=== PATIENT | female | born 1990 | race Caucasian/White ===

== ENCOUNTER 2018-12-27 00:36 | Emergency (ER) | payer SELFPAY ==
[2018-12-27] MEDS ORDERED: Sodium Chloride 0.9% 2.5 ML Syringe FLUSH PRN (01:03)
[2018-12-27] MEDS ORDERED: Sodium Chloride 0.9% 10 ML Syringe FLUSH PRN (01:03)
[2018-12-27] MEDS ORDERED: Sodium Chloride 0.9% 1,000 ML IV ONE (01:03)
[2018-12-27] MEDS ORDERED: Bacitracin Oint 1 GM U/D Packet TOP ONE (01:04)
[2018-12-27] MEDS ORDERED: Lidocaine 1% with EPINEPHrine 1:100,000 20 ML MDV INJECT ONE (01:04)
--- NOTE | 2018-12-27 01:10 | EDM.PDOC ---
ED HPI GENERAL MEDICAL PROBLEM - General Chief Complaint: Laceration Stated Complaint: CHIN LACERATION Time Seen by Provider: 12/27/18 00:48 - History of Present Illness INITIAL COMMENTS - FREE TEXT/NARRATIVE: HISTORY AND PHYSICAL: History of present illness: The patient is a 28-year-old female who follows with a provider in [place] and has a history of back problems which may have been a disc problem for which she has been treated in the past with physical therapy and chiropractor and never had an MRI and presents to the ED saying that she bent over yesterday and aggravated her back again and has been having pain in her right back radiating to her right hip. This pain is similar to her prior episode and she took an old Flexeril that she had this evening at 8:30 PM to try to help with the pain. She was sleepy after the Flexeril and she got up to go to the bathroom and was sitting on the toilet when she had a sudden spasm in her back on the right side she got short of breath and sweaty and then proceeded to pass out and recalls nothing prior to waking up on the floor other than what has been stated. She said that she was not on the floor for long and she only complains now of pain at her chin where she sustained a laceration. The patient says she has no head neck or back pain and no neurosensory changes or weakness in her legs. She's had no vomiting or nausea for or after this event and no chest pain shortness of breath or palpitations. She says that she still has the pain in her left back which is unchanged and she has no midline back pain and does not believe that she landed on her back and has no discomfort additional to what she had prior to the events. She said she ate normally yesterday has not had any fevers. The patient says she was updated on her tetanus shot just recently by her provider in the clinic and she does not have a local provider although she has relocated here. The patient said she had one beer with dinner but does not feel altered or confused in any way. With her back pain she has not had any bowel or bladder disturbances and she says that when she was on the toilet she was not pushing but that her back spasms which she believes caused this event of passing out to occur Review of systems: As per history of present illness and below otherwise all systems reviewed and negative. Past medical history: As per history of present illness and as reviewed below otherwise noncontributory. Surgical history: As per history of present illness and as reviewed below otherwise noncontributory. Social history: No reported history of drug or alcohol abuse. Family history: As per history of present illness and as reviewed below otherwise noncontributory. Physical exam: General: Well-developed well-nourished overweight female who is nontoxic and moves slowly in the ED due to her back pain on the right. She is speaking clearly and easily and is in no distress. HEENT: Atraumatic scalp without any defects tenderness or deformities, normocephalic, pupils reactive, EOMs are intact, negative for conjunctival pallor or scleral icterus, mucous membranes moist, throat clear, neck supple, nontender, trachea midline. Teeth and bite are normal, all facial bones have been palpated and have no tenderness defects deformities or soft tissue swelling and there is no nasal blood, TMs are normal bilaterally, there are no midline step-offs in his defects of the cervical spine, there is no maxillary tenderness and as I said bite is intact but there is a laceration at the chin measuring 2 cm to the subcutaneous tissue was some gaping and some tenderness in this area. Lungs: Clear to auscultation, breath sounds equal bilaterally, chest nontender. Heart: S1S2, regular, negative for clicks, rubs, or JVD. No overt murmurs are appreciated Abdomen: Soft, nondistended, nontender. Negative for masses or hepatosplenomegaly. Negative for costovertebral tenderness. Pelvis: Stable nontender. Genitourinary: Deferred. Rectal: Deferred. Extremities: Atraumatic, negative for cords or calf pain. Neurovascular unremarkable. Full range of motion without defects or deficits Neuro: Awake, alert, oriented. Cranial nerves II through XII unremarkable. Cerebellum unremarkable. Motor and sensory unremarkable throughout. Exam nonfocal. Back: There are no midline step-offs in his defects of the thoracic or lumbar spine no posterior rib tenderness and no posterior pelvis tenderness. The patient indicates the area of her right SI joint as the site of the pain and when I palpate this area and the musculature I can reproduce the pain. Diagnostics: EKG CBC CMP TSH troponin UA with reflex UCG chest x-ray CT scan of the head orthostatic vitals Therapeutics: IV O2 monitor IV fluids lidocaine with epinephrine for suture repair, bacitracin to the wound, Toradol Procedure note: After the wound was irrigated and cleansed by nursing the procedure was explained to the patient and 1% lidocaine with epinephrine was infused a local fashion. The area was prepped and draped in sterile fashion and the wound was explored and no foreign bodies were appreciated. There was significantly more depth appreciated on this reevaluation and #1 subcutaneous Vicryl suture was placed in simple interrupted fashion of 5-0 Vicryl .The skin edges were reapproximated using a total number of # 7 sutures of 5-0 chromic placed in a simple interrupted fashion. There were no complications and the patient tolerated the procedure well. Bacitracin and a gauze dressing were applied by nursing I discussed with the patient all testing results and tonight the events and have offered her observation admission which she declines. She thinks it's a combination of taking a muscle relaxer which made her drowsy and then having the spasm of pain while on the toilet that caused her to pass out and fall. She is aware of my concerns and accepts them. I will give her some diclofenac for home but she does not want anything else that stronger and will use the Flexeril as she needs. She is aware of reasons to return Impression: Syncopal event, recurrent right back pain with muscle spasm, chin laceration Definitive disposition and diagnosis as appropriate pending reevaluation and review of above. Jaw Pain Score (Numeric/FACES): 7 - Related Data Allergies Allergy/AdvReac Type Severity Reaction Status Date / Time No Known Allergies Allergy Verified 12/27/18 00:54 Home Meds: Home Meds Cholecalciferol (Vitamin D3) [Vitamin D] 1 tab PO DAILY 12/27/18 [History] Cyclobenzaprine [Flexeril] 5 mg PO ASDIRECTED 12/27/18 [History] Multivitamin [Multi-Vitamin Daily] 1 tab PO DAILY 12/27/18 [History] Venlafaxine [Effexor XR] 150 mg PO DAILY 12/27/18 [History] Vitamin B Complex 1 cap PO DAILY 12/27/18 [History] ED ROS GENERAL - Review of Systems Review Of Systems: ROS reveals no pertinent complaints other than HPI. ED EXAM, SKIN/RASH Exam: See Below (See dictation) Course - Vital Signs Last Recorded V/S: Last Vital Signs Temp 35.5 C 12/27/18 00:51 Pulse 89 12/27/18 00:51 Resp BP 138/88 12/27/18 00:51 Pulse Ox 95 12/27/18 00:51 Orthostatic Blood Pressure [ 120/66 Standing] Orthostatic Blood Pressure [ 139/79 Sitting] Orthostatic Blood Pressure [ 125/69 Supine] - Orders/Labs/Meds Orders: Active Orders 24 hr Category Date Time Status Cardiac Monitoring [RC] . DIRECTED Care 12/27/18 01:02 Active Communication Order [RC] STAT Care 12/27/18 01:04 Active EKG Documentation Completion [RC] STAT Care 12/27/18 01:03 Active Orthostatic Vital Signs [RC] ASDIRECTED Care 12/27/18 01:03 Active Oxygen Therapy, ED [RC] ASDIRECTED Care 12/27/18 01:02 Active Pulse Oximetry [RC] ASDIRECTED Care 12/27/18 01:02 Active Sodium Chloride 0.9% [Saline Flush] Med 12/27/18 01:03 Active 10 ml FLUSH ASDIRECTED PRN Sodium Chloride 0.9% [Saline Flush] Med 12/27/18 01:03 Active 2.5 ml FLUSH ASDIRECTED PRN Saline Lock Insert [OM.PC] Stat Oth 12/27/18 01:02 Ordered Medication Orders Sodium Chloride (Saline Flush) 10 ml FLUSH ASDIRECTED PRN PRN Reason: Keep Vein Open Sodium Chloride (Saline Flush) 2.5 ml FLUSH ASDIRECTED PRN PRN Reason: Keep Vein Open Labs: Laboratory Tests 12/27/18 12/27/18 12/27/18 Range/Units 01:15 01:15 01:30 WBC 9.15 (4.0-11.0) K/uL RBC 4.46 (4.30-5.90) M/uL Hgb 14.1 (12.0-16.0) g/dL Hct 40.8 (36.0-46.0) % MCV 91.5 (80.0-98.0) fL MCH 31.6 (27.0-32.0) pg MCHC 34.6 (31.0-37.0) g/dL RDW Std Deviation 39.4 (28.0-62.0) fl RDW Coeff of Melissa 12 (11.0-15.0) % Plt Count 250 (150-400) K/uL MPV 10.30 (7.40-12.00) fL Neut % (Auto) 54.2 (48.0-80.0) % Lymph % (Auto) 36.5 (16.0-40.0) % Garden % (Auto) 7.0 (0.0-15.0) % Eos % (Auto) 1.9 (0.0-7.0) % Baso % (Auto) 0.4 (0.0-1.5) % Neut # (Auto) 5.0 (1.4-5.7) K/uL Lymph # (Auto) 3.3 H (0.6-2.4) K/uL Garden # (Auto) 0.6 (0.0-0.8) K/uL Eos # (Auto) 0.2 (0.0-0.7) K/uL Baso # (Auto) 0.0 (0.0-0.1) K/uL Sodium 139 (136-145) mmol/L Potassium 4.2 (3.5-5.1) mmol/L Chloride 105 (98-107) mmol/L Carbon Dioxide 24.4 (21.0-32.0) mmol/L BUN 12 (7.0-18.0) mg/dL Creatinine 0.7 (0.6-1.0) mg/dL Est Cr Clr Drug Dosing 123.93 mL/min Estimated GFR (MDRD) > 60.0 ml/min Glucose 108 H (74-106) mg/dL Calcium 8.5 (8.5-10.1) mg/dL Total Bilirubin 0.3 (0.2-1.0) mg/dL AST 16 (15-37) IU/L ALT 20 (14-63) IU/L Alkaline Phosphatase 93 (46-116) U/L Troponin I < 0.050 (0.000-0.056) ng/mL Total Protein 6.8 (6.4-8.2) g/dL Albumin 3.6 (3.4-5.0) g/dL Globulin 3.2 (2.6-4.0) g/dL Albumin/Globulin Ratio 1.1 (0.9-1.6) TSH 3rd Generation 5.71 H (0.36-3.74) uIU/mL Urine Color YELLOW Urine Appearance CLEAR Urine pH 6.0 (5.0-8.0) Ur Specific Poston 1.010 (1.001-1.035) Urine Protein NEGATIVE (NEGATIVE) mg/dL Urine Glucose (UA) NEGATIVE (NEGATIVE) mg/dL Urine Ketones NEGATIVE (NEGATIVE) mg/dL Urine Occult Blood NEGATIVE (NEGATIVE) Urine Nitrite NEGATIVE (NEGATIVE) Urine Bilirubin NEGATIVE (NEGATIVE) Urine Urobilinogen 0.2 (<2.0) EU/dL Ur Leukocyte Esterase NEGATIVE (NEGATIVE) Urine HCG, Qual (NEGATIVE) 12/27/18 Range/Units 01:30 WBC (4.0-11.0) K/uL RBC (4.30-5.90) M/uL Hgb (12.0-16.0) g/dL Hct (36.0-46.0) % MCV (80.0-98.0) fL MCH (27.0-32.0) pg MCHC (31.0-37.0) g/dL RDW Std Deviation (28.0-62.0) fl RDW Coeff of Melissa (11.0-15.0) % Plt Count (150-400) K/uL MPV (7.40-12.00) fL Neut % (Auto) (48.0-80.0) % Lymph % (Auto) (16.0-40.0) % Garden % (Auto) (0.0-15.0) % Eos % (Auto) (0.0-7.0) % Baso % (Auto) (0.0-1.5) % Neut # (Auto) (1.4-5.7) K/uL Lymph # (Auto) (0.6-2.4) K/uL Garden # (Auto) (0.0-0.8) K/uL Eos # (Auto) (0.0-0.7) K/uL Baso # (Auto) (0.0-0.1) K/uL Sodium (136-145) mmol/L Potassium (3.5-5.1) mmol/L Chloride (98-107) mmol/L Carbon Dioxide (21.0-32.0) mmol/L BUN (7.0-18.0) mg/dL Creatinine (0.6-1.0) mg/dL Est Cr Clr Drug Dosing mL/min Estimated GFR (MDRD) ml/min Glucose (74-106) mg/dL Calcium (8.5-10.1) mg/dL Total Bilirubin (0.2-1.0) mg/dL AST (15-37) IU/L ALT (14-63) IU/L Alkaline Phosphatase (46-116) U/L Troponin I (0.000-0.056) ng/mL Total Protein (6.4-8.2) g/dL Albumin (3.4-5.0) g/dL Globulin (2.6-4.0) g/dL Albumin/Globulin Ratio (0.9-1.6) TSH 3rd Generation (0.36-3.74) uIU/mL Urine Color Urine Appearance Urine pH (5.0-8.0) Ur Specific Poston (1.001-1.035) Urine Protein (NEGATIVE) mg/dL Urine Glucose (UA) (NEGATIVE) mg/dL Urine Ketones (NEGATIVE) mg/dL Urine Occult Blood (NEGATIVE) Urine Nitrite (NEGATIVE) Urine Bilirubin (NEGATIVE) Urine Urobilinogen (<2.0) EU/dL Ur Leukocyte Esterase (NEGATIVE) Urine HCG, Qual NEGATIVE (NEGATIVE) Meds: Medications Generic Name Dose Route Start Last Admin Trade Name Juliet PRN Reason Stop Dose Admin Sodium Chloride 10 ml 12/27/18 01:03 Saline Flush FLUSH ASDIRECTED PRN Keep Vein Open Sodium Chloride 2.5 ml 12/27/18 01:03 Saline Flush FLUSH ASDIRECTED PRN Keep Vein Open Discontinued Medications Generic Name Dose Route Start Last Admin Trade Name Juliet PRN Reason Stop Dose Admin Bacitracin 1 dose 12/27/18 01:04 12/27/18 01:36 Bacitracin Oint 1 Gm TOP 12/27/18 01:05 1 dose ONETIME ONE Administration Sodium Chloride 1,000 mls @ 999 mls/hr 12/27/18 01:03 12/27/18 01:36 Normal Saline IV 12/27/18 02:03 999 mls/hr STAT ONE Administration Ketorolac Tromethamine 30 mg 12/27/18 01:53 12/27/18 02:06 Toradol IVPUSH 12/27/18 01:54 30 mg ONETIME ONE Administration Lidocaine HCl 5 ml 12/27/18 01:00 Xylocaine-Mpf 1% INJECT 12/27/18 01:01 ONETIME ONE Lidocaine/Epinephrine 20 ml 12/27/18 01:04 12/27/18 01:37 Xylocaine 1% With Epinephrine 1:100,000 INJECT 12/27/18 01:05 20 ml ONETIME ONE Administration Departure - Departure Time of Disposition: 02:45 Disposition: Home, Self-Care 01 Condition: Good Clinical Impression: Spasm of back muscles Syncope Qualifiers: Syncope type: unspecified Qualified Code(s): R55 - Syncope and collapse Chin laceration Qualifiers: Encounter type: initial encounter Qualified Code(s): S01.81XA - Laceration without foreign body of other part of head, initial encounter - Discharge Information Referrals: PCP,None [Primary Care Provider] - Forms: ED Department Discharge Additional Instructions: The following information is given to patients seen in the emergency department who are being discharged to home. This information is to outline your options for follow-up care. We provide all patients seen in our emergency department with a follow-up referral. The need for follow-up, as well as the timing and circumstances, are variable depending upon the specifics of your emergency department visit. If you don't have a primary care physician on staff, we will provide you with a referral. We always advise you to contact your personal physician following an emergency department visit to inform them of the circumstance of the visit and for follow-up with them and/or the need for any referrals to a consulting specialist. The emergency department will also refer you to a specialist when appropriate. This referral assures that you have the opportunity for followup care with a specialist. All of these measure are taken in an effort to provide you with optimal care, which includes your followup. Under all circumstances we always encourage you to contact your private physician who remains a resource for coordinating your care. When calling for followup care, please make the office aware that this follow-up is from your recent emergency room visit. If for any reason you are refused follow-up, please contact the [facility] emergency department at and ask to speak to the emergency department charge nurse. [facility]- [facility] [address] [place] [address] Please call and follow-up with one of our providers in the clinic or connect with your doctor in [place] to discuss your recurrence of back pain and spasm for further management of the pain. You have been given diclofenac to add to the Flexeril you have at home and this medication was given to [facility]. Chin laceration was repaired with sutures that will dissolve on their own but if you want them removed you can have those removed in 7 days. Keep the area of the laceration clean and dry for the next 24 hours and then he may cleanse with mild soap and water pat dry and apply bacitracin or Neosporin. Please do not cover the area with a Band-Aid and if you do need to cover it please use a breathable gauze dressing. Please push hydration and rest and please take care when you are using the Flexeril so as not to have another episode. Return to ER as needed and as discussed - My Orders Last 24 Hours: My Active Orders 12/27/18 01:02 Cardiac Monitoring [RC] . DIRECTED Oxygen Therapy, ED [RC] ASDIRECTED Pulse Oximetry [RC] ASDIRECTED Saline Lock Insert [OM.PC] Stat 12/27/18 01:03 EKG Documentation Completion [RC] STAT Orthostatic Vital Signs [RC] ASDIRECTED Sodium Chloride 0.9% [Saline Flush] 10 ml FLUSH ASDIRECTED PRN Sodium Chloride 0.9% [Saline Flush] 2.5 ml FLUSH ASDIRECTED PRN 12/27/18 01:04 Communication Order [RC] STAT - Assessment/Plan Last 24 Hours: My Active Orders 12/27/18 01:02 Cardiac Monitoring [RC] . DIRECTED Oxygen Therapy, ED [RC] ASDIRECTED Pulse Oximetry [RC] ASDIRECTED Saline Lock Insert [OM.PC] Stat 12/27/18 01:03 EKG Documentation Completion [RC] STAT Orthostatic Vital Signs [RC] ASDIRECTED Sodium Chloride 0.9% [Saline Flush] 10 ml FLUSH ASDIRECTED PRN Sodium Chloride 0.9% [Saline Flush] 2.5 ml FLUSH ASDIRECTED PRN 12/27/18 01:04 Communication Order [RC] STAT
[2018-12-27] MEDS ORDERED: Ketorolac 30 MG/ML SDV IVPUSH ONE (01:53)
[2018-12-27 01:55] LABS: CHLORIDE,CL 105 mmol/L (98-107); SODIUM,NA 139 mmol/L (136-145)
--- NOTE | 2018-12-27 02:39 | CR ---
Indication: Fall. Pain. Technique: Chest 1 view Comparison: None Findings/Impression: Cardiovascular and mediastinum: Heart size and vasculature are normal in caliber and appearance. Mediastinum is within normal limits. Lungs and pleural space: Lungs are clear. No sign of infiltrate or mass. No sign of pleural effusion. No pneumothorax. Bones and soft tissues: No significant findings. Dictated by Rakan Vargas MD @ 12/27/2018 2:37:10 AM Dictated by: Rakan Vargas MD @ 12/27/2018 02:37:17 (Electronically Signed)
--- NOTE | 2018-12-27 02:44 | CT ---
INDICATION: Syncope. Fall. Pain TECHNIQUE: CT head without contrast. COMPARISON: None available FINDINGS: The ventricles and sulci are within normal limits. There is no mass effect or midline shift. There is no loss of rosario-white differentiation. There is no evidence of a gross acute intracranial hemorrhage. No acute calvarial fracture is seen. The visualized paranasal sinuses and mastoid air cells are clear. The visualized orbits are within normal limits. IMPRESSION: No evidence of an acute intracranial hemorrhage, mass effect or loss of rosario-white differentiation. Dictated by Rakan Vargas MD @ 12/27/2018 2:42:27 AM Please note that all CT scans at this facility use dose modulation, iterative reconstruction, and/or weight-based dosing when appropriate to reduce radiation dose to as low as reasonably achievable. Dictated by: Rakan Vargas MD @ 12/27/2018 02:42:32 (Electronically Signed)
== END 2018-12-27 02:50 | disposition home or self-care (01) ==
LOC: MW.ED 00:36
DX: S01.81XA Laceration without foreign body of other part of head, initial encounter (principal); R55 Syncope and collapse; M54.5 Low back pain; M62.830 Muscle spasm of back; G89.29 Other chronic pain; Z79.899 Other long term (current) drug therapy; X58.XXXA Exposure to other specified factors, initial encounter
CPT/HCPCS: 12051; 36415; 70450; 71045; 80053; 81003; 81025; 84443; 84484; 85025; 93005; 96361; 96374; 99285; J1885; J7040

== ENCOUNTER 2021-01-14 18:04 | Emergency (ER) | payer OTHER ==
[2021-01-14] MEDS ORDERED: Sodium Chloride 0.9% 10 ML Syringe FLUSH PRN (18:35)
[2021-01-14] MEDS ORDERED: Sodium Chloride 0.9% 2.5 ML Syringe FLUSH PRN (18:35)
[2021-01-14 19:24] LABS: BLOOD UREA NITROGEN,BUN 8 mg/dL (7.0-18.0); CARBON DIOXIDE,CO2 25.8 mmol/L (21.0-32.0); CHLORIDE,CL 106 mmol/L (98-107); GLUCOSE RANDOM 85 mg/dL (74-106); POTASSIUM,K 3.4 mmol/L (3.5-5.1); SODIUM,NA 140 mmol/L (136-145)
[2021-01-14] MEDS ORDERED: Iopamidol 755 MG/ML 500 ML Multipack Bottle IVPUSH STA (20:05)
--- NOTE | 2021-01-14 20:42 | CT ---
INDICATION: Status post delivery with blood draining from her incision COMPARISON: None TECHNIQUE: CT examination of the abdomen and pelvis was performed following the uneventful intravenous administration of 100 cc of Isovue 370. Thin section axial images were obtained from the lung bases through the pubic symphysis. Oral contrast was not administered. Please note that all CT scans at this facility use dose modulation, iterative reconstruction, and/or weight-based dosing when appropriate to reduce radiation dose to as low as reasonably achievable. FINDINGS: LUNG BASES: The lung bases as visualized appear normal.The heart size is normal at the lung bases. LIVER/BILIARY SYSTEM:The liver is normal in size and configuration. There is no focal mass and there is no intra- or extra hepatic biliary ductal dilatation.The gall bladder appears normal. ADRENALS: Normal KIDNEYS, URETERS and BLADDER:There is an 8 millimeter low-density lesion in the right kidney that is likely a cyst. The kidneys are otherwise unremarkable. No obstructive uropathy. The bladder as visualized appears normal. SPLEEN:Normal appearance. PANCREAS: Appears normal. RETROPERITONEUM and MESENTERY: There is no mass, adenopathy or aortic aneurysm. GASTROINTESTINAL SYSTEM: There is no evidence of diverticulitis, colitis, mechanical obstruction, or appendicitis. 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 There are findings of a recent Pfannenstiel incision and there is both fluid and gas within the incision. There is also fluid and gas within both rectus sheaths. The study was not performed with an early or angiographic phase contrast bolus. Nevertheless, I do not see any active extravasation of blood rising from the uterus, rectus sheath or incision within the limitations of this examination. OSSEOUS STRUCTURES and ABDOMINAL WALL: There is an age-appropriate appearance of the osseous structures.No significant abdominal wall defect. OTHER: No free fluid or free air. IMPRESSION: 1. Enlarged uterus consistent with recent delivery. 2. There is gas and fluid within the rectus sheath on the right and on the left and there is gas and fluid within the Pfannenstiel incision. This is consistent with the history hemorrhage from the incision. 3. The study was not performed as an angiographic/early phase examination. However, within the limitations of the study, I see no active extravasation/blush within the uterus, the anterior abdominal wall or within the rectus sheath on either side. Please note that all CT scans at this facility use dose modulation, iterative reconstruction, and/or weight-based dosing when appropriate to reduce radiation dose to as low as reasonably achievable. Dictated by Jarrod Ernst MD @ 01/14/2021 8:40:[address] Jarrod Ernst @ Jan 14 2021 8:40PM
[2021-01-14] MEDS ORDERED: Labetalol 100 MG Tab PO ONE (21:23)
--- NOTE | 2021-01-14 21:41 | EDM.PDOC ---
ED HPI GENERAL MEDICAL PROBLEM - General Chief Complaint: Wound Recheck Stated Complaint: C SECTION OPENED BLEEDING Time Seen by Provider: 01/14/21 18:07 Source of Information: Reports: Patient History Limitations: Reports: No Limitations - History of Present Illness INITIAL COMMENTS - FREE TEXT/NARRATIVE: HISTORY AND PHYSICAL: History of present illness: Patient is a 30-year-old female who presents to the ED today with concern of a bleeding incision from a that occurred 3 days ago at [facility] Dr. James for repeat cesarian at 36 weeks due to complicated by gestational hypertension. Patient states that she is currently on labetalol and was told that her blood pressure should be 150 systolic over 100 or less and is due for her next dose of 300mg labetalol at 8pm. Patient states she was just discharged from [facility] today and drove home with her baby and just got home. Patient states when she stood up from the car, she had an episode of bleeding that filled a pad from the incision and was concerned so came to the ED for further evaluation. Denies any increase in pain of her abdomen or incision. Denies any other symptoms or concerns. Patient denies fever, chills, chest pain, shortness of breath, or cough. Denies headache, neck stiff ness, change in vision, syncope, or near syncope. Denies nausea, vomiting, diarrhea, constipation, or dysuria. Has not noted any blood in urine or stool. Patient has been eating and drinking appropriately. Review of systems: As per history of present illness and below otherwise all systems reviewed and negative. Past medical history: As per history of present illness and as reviewed below otherwise noncontributory. Surgical history: As per history of present illness and as reviewed below otherwise noncontributory. Social history: See social history for further information Family history: As per history of present illness and as reviewed below otherwise noncontributory. Physical exam: General: Patient is alert, oriented, and in no acute distress. Patient laying comfortably on exam table. Patient initial triaged blood pressure 160s/100s. After patient relaxed on exam table, repeat without intervention 140s/90s. Otherwise, vitally stable and reviewed by me. HEENT: Atraumatic, normocephalic, pupils equal and reactive bilaterally, negative for conjunctival pallor or scleral icterus, mucous membranes moist, TMs normal bilaterally, throat clear, neck supple, nontender, trachea midline. No drooling or trismus noted. No meningeal signs. No hot potato voice noted. Lungs: Clear to auscultation, breath sounds equal bilaterally, chest nontender. Heart: S1S2, regular rate and rhythm without overt murmur Abdomen: Incision consistent with recent cesarian Pfannenstiel incision. There does not appear to be any wound dehiscence but there is an area of the central incision that has a steady trickle of dark blood that increases with an increase in intraabdominal pressure. Otherwise, soft, nondistended, nontender. Negative for masses or hepatosplenomegaly. Negative for costovertebral tenderness. Pelvis: Stable nontender. Genitourinary: Deferred. Rectal: Deferred. Skin: Intact, warm, dry. No lesions or rashes noted. Extremities: Atraumatic, negative for cords or calf pain. Neurovascular unremarkable. Neuro: Awake, alert, oriented. Cranial nerves II through XII unremarkable. Cer ebellum unremarkable. Motor and sensory unremarkable throughout. Exam nonfocal. Notes: Patient is a 30-year-old female status post delivery 3 days who presents emergency room today with concern of bleeding from her incision site that occurred just prior to travel to the ED. Patient was just discharged from [facility] in [place] today and had returned home when she had noticed bleeding from her incision site. Patient had a repeat at 36 weeks due to gestational hypertension and currently on labetalol with next dose due at 8 PM. Upon arrival to the ED, triage vitals of patient's blood pressure 160s over 100s. However, after a few minutes of patient relaxing on exam table, repeat blood pressure on my exam 140s over 90s. Patient does have a recent Pfannenstiel incision without any sign of dehiscence, however, there is a steady trickle of dark blood from the central incision that as patient increases intra-abdominal pressure, this trickle increases. Will obtain lab work as well as abdominal pelvic CT scan. Mild derangements of lab work today unremarkable. LFTs within normal limits. Hemoglobin 11.3. Hematocrit 32.7. Abdominal pelvic CT shows enlarged uterus consistent with recent delivery. There is gas and fluid within the rectus sheath on the right and on the left there is gas and fluid within the incision. This is consistent with history of hemorrhage from the incision. I did call and speak to the [employer] provider on-call for Dr. James Christopher and thoroughly discussed patient's case. She would recommend that we place a pressure dressing over the incision overnight and to have patient take the dressing off in the morning and call Dr. James's clinic for further instruction in the morning. Upon reevaluation of patient, she continues to have a small trickle of blood from incision site. Patient given dose of Labetalol 300mg which due while in ED and pressure dressing placed by nursing staff. Strict return precautions thoroughly discussed with patient. Discussed importance for calling Dr. James's clinic in the morning for further instruction. Voices understanding and is agreeable to plan of care. Denies any further questions or concerns at this time. Diagnostics: CBC, CMP, Abd/Pelvic CT w contrast Therapeutics: Labetalol (Given dose that was due at 8), Pressure dressing (as directed by Dr. Ramirez, OBGYN for Annabel) Prescription: None Impression: Post op incision bleeding Post hypertension Plan: 1. Keep the pressure dressing on the incision until the morning. Remove the pressure dressing in the morning and call your surgeon, Dr. James clinic for further instruction. 2. Call Dr[facility] in the morning for further recommendation as discussed. 3. Continue to take the blood pressure medication as prescribed to you as directed and as discussed. 4. You can alternate ibuprofen and Tylenol as directed for pain and discomfort. Return to the ED as needed and as discussed. Definitive disposition and diagnosis as appropriate pending reevaluation and review of above. - Related Data Allergies Allergy/AdvReac Type Severity Reaction Status Date / Time No Known Allergies Allergy Verified 01/14/21 18:18 Home Meds: Home Meds Cholecalciferol (Vitamin D3) [Vitamin D] 1 tab PO DAILY 12/27/18 [History] Multivitamin [Multi-Vitamin Daily] 1 tab PO DAILY 12/27/18 [History] Venlafaxine [Effexor XR] 150 mg PO DAILY 12/27/18 [History] Vitamin B Complex 1 cap PO DAILY 12/27/18 [History] Past Medical History Cardiovascular History: Reports: None Respiratory History: Reports: None Genitourinary History: Reports: None [employer] History: Reports: Polycystic Ovaries, Musculoskeletal History: Reports: Other (See Below) Other Musculoskeletal History: herniated disc, kneecap Neurological History: Reports: None Psychiatric History: Reports: Depression Endocrine/Metabolic History: Reports: Obesity/BMI 30+ Hematologic History: Reports: None Immunologic History: Reports: None Oncologic (Cancer) History: Reports: None Dermatologic History: Reports: None - Infectious Disease History Infectious Disease History: Reports: Chicken Pox - Past Surgical History Head Surgeries/Procedures: Reports: None HEENT Surgical History: Reports: Oral Surgery, Tonsillectomy GI Surgical History: Reports: Bariatric Procedure, Cholecystectomy Other GI Surgeries/Procedures: gastric bypass Social & Family History - Tobacco Use Tobacco Use Status *Q: Never Tobacco User - Caffeine Use Caffeine Use: Reports: None - Recreational Drug Use Recreational Drug Use: No ED ROS GENERAL - Review of Systems Review Of Systems: Comprehensive ROS is negative, except as noted in HPI. ED EXAM, GENERAL - Physical Exam Exam: See Below (see dictation) Course - Vital Signs Last Recorded V/S: Last Vital Signs Temp 97.1 F 01/14/21 18:10 Pulse 78 01/14/21 22:27 Resp 16 01/14/21 21:24 BP 146/88 H 01/14/21 22:27 Pulse Ox 98 01/14/21 21:24 - Orders/Labs/Meds Orders: Active Orders 24 hr Category Date Time Status Saline Lock Insert [OM.PC] Stat Oth 01/14/21 18:35 Ordered Labs: Laboratory Tests 01/14/21 01/14/21 Range/Units 18:43 18:43 WBC 6.41 (4.0-11.0) K/uL RBC 3.58 L (4.30-5.90) M/uL Hgb 11.3 L (12.0-16.0) g/dL Hct 32.7 L (36.0-46.0) % MCV 91.3 (80.0-98.0) fL MCH 31.6 (27.0-32.0) pg MCHC 34.6 (31.0-37.0) g/dL RDW Std Deviation 43.1 (28.0-62.0) fl RDW Coeff of Melissa 13 (11.0-15.0) % Plt Count 212 (150-400) K/uL MPV 10.10 (7.40-12.00) fL Neut % (Auto) 64.1 (48.0-80.0) % Lymph % (Auto) 24.3 (16.0-40.0) % [place] % (Auto) 6.6 (0.0-15.0) % Eos % (Auto) 4.7 (0.0-7.0) % Baso % (Auto) 0.3 (0.0-1.5) % Neut # (Auto) 4.1 (1.4-5.7) K/uL Lymph # (Auto) 1.6 (0.6-2.4) K/uL [place] # (Auto) 0.4 (0.0-0.8) K/uL Eos # (Auto) 0.3 (0.0-0.7) K/uL Baso # (Auto) 0.0 (0.0-0.1) K/uL Nucleated RBC % 0.0 /100WBC Nucleated RBCs # 0 K/uL Sodium 140 (136-145) mmol/L Potassium 3.4 L (3.5-5.1) mmol/L Chloride 106 (98-107) mmol/L Carbon Dioxide 25.8 (21.0-32.0) mmol/L BUN 8 (7.0-18.0) mg/dL Creatinine 0.7 (0.6-1.0) mg/dL Est Cr Clr Drug Dosing 125.92 mL/min Estimated GFR (MDRD) > 60.0 ml/min Glucose 85 (74-106) mg/dL Calcium 8.6 (8.5-10.1) mg/dL Total Bilirubin 0.2 (0.2-1.0) mg/dL AST 19 (15-37) IU/L ALT 16 (14-63) IU/L Alkaline Phosphatase 122 H (46-116) U/L Total Protein 5.7 L (6.4-8.2) g/dL Albumin 2.2 L (3.4-5.0) g/dL Globulin 3.5 (2.6-4.0) g/dL Albumin/Globulin Ratio 0.6 L (0.9-1.6) Meds: Medications Discontinued Medications Generic Name Dose Route Start Last Admin Trade Name Freq PRN Reason Stop Dose Admin Iopamidol 100 ml 01/14/21 20:05 01/14/21 20:05 Iopamidol 755 Mg/Ml 500 Ml Multipack Bottle IVPUSH 01/14/21 20:06 100 ml ONETIME STA Administration Labetalol HCl 300 mg 01/14/21 21:23 01/14/21 21:52 Labetalol 100 Mg Tab PO 01/14/21 21:24 300 mg ONETIME ONE Administration Sodium Chloride 10 ml 01/14/21 18:35 01/14/21 18:52 Sodium Chloride 0.9% 10 Ml Syringe FLUSH 10 ml ASDIRECTED PRN Administration Keep Vein Open Sodium Chloride 2.5 ml 01/14/21 18:35 01/14/21 18:52 Sodium Chloride 0.9% 2.5 Ml Syringe FLUSH 2.5 ml ASDIRECTED PRN Administration Keep Vein Open Departure - Departure Time of Disposition: 22:30 Disposition: Home, Self-Care 01 Clinical Impression: Postoperative bleeding from incision, hypertension - Discharge Information Instructions: Hypertension, Incision and Drainage Referrals: PCP,None [Primary Care Provider] - Forms: ED Department Discharge Additional Instructions: The following information is given to patients seen in the emergency department who are being discharged to home. This information is to outline your options for follow-up care. We provide all patients seen in our emergency department with a follow-up referral. The need for follow-up, as well as the timing and circumstances, are variable depending upon the specifics of your emergency department visit. If you don't have a primary care physician on staff, we will provide you with a referral. We always advise you to contact your personal physician following an emergency department visit to inform them of the circumstance of the visit and for follow-up with them and/or the need for any referrals to a consulting specialist. The emergency department will also refer you to a specialist when appropriate. This referral assures that you have the opportunity for follow-up care with a specialist. All of these measure are taken in an effort to provide you with optimal care, which includes your follow-up. Under all circumstances we always encourage you to contact your private physician who remains a resource for coordinating your care. When calling for follow-up care, please make the office aware that this follow-up is from your recent emergency room visit. If for any reason you are refused follow-up, please contact the [facility] Emergency Department at and asked to speak to the emergency department charge nurse. [facility] [address] [place] [address] [facility] [address] [place] [address] DIANA Plasencia [address] [place] [address] 1. Keep the pressure dressing on the incision until the morning. Remove the pressure dressing in the morning and call your surgeon, Dr. James clinic for further instruction. 2. Call [facility] in the morning for further recommendation as discussed. 3. Continue to take the blood pressure medication as prescribed to you as directed and as discussed. 4. You can alternate ibuprofen and Tylenol as directed for pain and discomfort. Return to the ED as needed and as discussed. Sepsis Event Note (ED) - Evaluation Sepsis Screening Result: No Definite Risk - Focused Exam Vital Signs: Vital Signs Temp Pulse Pulse Resp BP BP Pulse Ox 01/14/21 22:27 78 146/88 H 01/14/21 22:07 164/87 H 01/14/21 21:52 83 179/98 H 01/14/21 21:24 60 16 140/90 98 01/14/21 18:10 97.1 F 90 18 162/101 H 97 - My Orders Last 24 Hours: My Active Orders 01/14/21 18:35 Saline Lock Insert [OM.PC] Stat - Assessment/Plan Last 24 Hours: My Active Orders 01/14/21 18:35 Saline Lock Insert [OM.PC] Stat
== END 2021-01-14 22:27 | disposition home or self-care (01) ==
LOC: MW.ED 18:04
DX: O90.89 Other complications of the puerperium, not elsewhere classified (principal); O13.5 Gestational [pregnancy-induced] hypertension without significant proteinuria, complicating the puerperium; O99.215 Obesity complicating the puerperium; E66.9 Obesity, unspecified; Z90.49 Acquired absence of other specified parts of digestive tract
CPT/HCPCS: 36415; 74177; 80053; 85025; 99284; A9270; Q9967

== ENCOUNTER 2021-08-01 14:56 | Emergency (ER) | payer SELFPAY ==
[2021-08-01] MEDS ORDERED: Sodium Chloride 0.9% 2.5 ML Syringe FLUSH PRN (15:19)
[2021-08-01] MEDS ORDERED: Sodium Chloride 0.9% 10 ML Syringe FLUSH PRN (15:19)
[2021-08-01 16:09] LABS: BLOOD UREA NITROGEN,BUN 13 mg/dL (7.0-18.0); CARBON DIOXIDE,CO2 26.5 mmol/L (21.0-32.0); CHLORIDE,CL 103 mmol/L (98-107); GLUCOSE RANDOM 74 mg/dL (74-106); POTASSIUM,K 3.8 mmol/L (3.5-5.1); SODIUM,NA 139 mmol/L (136-145)
== END 2021-08-01 17:17 | disposition home or self-care (01) ==
LOC: MW.ED 14:56
DX: R07.9 Chest pain, unspecified (principal); R00.2 Palpitations; E66.9 Obesity, unspecified; Z68.41 Body mass index [BMI] 40.0-44.9, adult
CPT/HCPCS: 36415; 71045; 71045-26; 80053; 84484; 85025; 85379; 85610; 93005; 99285-25

== ENCOUNTER 2021-12-31 12:51 | Emergency (ER) | payer BC, OTHER ==
[2021-12-31 14:51] LABS: CARBON DIOXIDE,CO2 25.1 mmol/L (21.0-32.0); POTASSIUM,K 3.5 mmol/L (3.5-5.1)
== END 2021-12-31 15:22 | disposition left against medical advice (07) ==
LOC: MW.ED 12:51
DX: O20.0 Threatened abortion (principal); F32.A Depression, unspecified; E66.9 Obesity, unspecified; Z68.41 Body mass index [BMI] 40.0-44.9, adult; Z79.899 Other long term (current) drug therapy
CPT/HCPCS: 36415; 76801; 76801-26; 80053; 81001; 84702; 85025; 86900; 86901; 99284-25

== ENCOUNTER 2022-08-06 12:41 | Observation (INO) | payer BC, MEDICAID ==
[2022-08-06] MEDS ORDERED: Sodium Chloride 0.9% 10 ML Syringe FLUSH PRN (12:50)
[2022-08-06] MEDS ORDERED: Ibuprofen 600 MG Tab PO PRN (12:50)
[2022-08-06] MEDS ORDERED: Acetaminophen 325 MG Tab PO PRN (12:50)
[2022-08-06] MEDS ORDERED: Ondansetron 4 MG/2 ML SDV IVPUSH PRN (12:50)
[2022-08-06] MEDS ORDERED: Sodium Chloride 0.9% 20 ML SDV IV PRN (12:50)
[2022-08-06] MEDS ORDERED: Sodium Chloride 0.9% 2.5 ML Syringe FLUSH PRN (12:50)
[2022-08-06] MEDS: Acetaminophen/oxyCODONE 325-5 MG Tab PO PRN ×2 (13:36→19:16)
[2022-08-06] MEDS: Piperacillin/Tazobactam 3.375 GM in Sodium Chloride 0.9% 50 ML IV SCH ×2 (13:46→18:22)
[2022-08-06 14:00] LABS: CARBON DIOXIDE,CO2 24.7 mmol/L (21.0-32.0); POTASSIUM,K 3.9 mmol/L (3.5-5.1)
[2022-08-06] MEDS ORDERED: Iopamidol 755 MG/ML 500 ML Multipack Bottle IVPUSH ONE (14:47)
[2022-08-07] MEDS: Piperacillin/Tazobactam 3.375 GM in Sodium Chloride 0.9% 50 ML IV SCH ×4 (01:08→18:32)
[2022-08-07] MEDS: Acetaminophen/oxyCODONE 325-5 MG Tab PO PRN ×5 (01:14→23:35)
[2022-08-07] MEDS: Labetalol 100 MG Tab PO SCH ×2 (11:03→18:40)
[2022-08-07] MEDS: Venlafaxine 75 MG Cap.ER PO SCH (11:04)
[2022-08-07] MEDS: amLODIPine 5 MG Tab PO SCH ×2 (11:04→20:56)
[2022-08-07] MEDS ORDERED: Lidocaine 1% PF 2 ML SDV INJECT ONE (16:47)
[2022-08-07] MEDS ORDERED: Lidocaine 1% 5 ML VIAL INJECT ONE (18:10)
[2022-08-07] MEDS ORDERED: Lidocaine 1% 20 ML MDV ONE (18:15)
[2022-08-08] MEDS: Labetalol 100 MG Tab PO SCH ×2 (01:57→11:17)
[2022-08-08] MEDS: Acetaminophen/oxyCODONE 325-5 MG Tab PO PRN ×2 (05:27→11:16)
[2022-08-08] MEDS: Piperacillin/Tazobactam 3.375 GM in Sodium Chloride 0.9% 50 ML IV SCH ×3 (06:04)
[2022-08-08 06:31] LABS: CARBON DIOXIDE,CO2 25.2 mmol/L (21.0-32.0); POTASSIUM,K 3.7 mmol/L (3.5-5.1)
[2022-08-08] MEDS: Venlafaxine 75 MG Cap.ER PO SCH (09:04)
[2022-08-08] MEDS: amLODIPine 5 MG Tab PO SCH (09:05)
[2022-08-08] MEDS ORDERED: Venlafaxine 75 MG Cap.ER PO SCH (10:45)
== END 2022-08-08 13:06 | disposition home or self-care (01) ==
LOC: MW.MS 12:41
PROVIDERS: ADMIT Obstetrics & Gynecology; ATTEND Obstetrics & Gynecology
DX: L03.311 Cellulitis of abdominal wall (principal); O34.211 Maternal care for low transverse scar from previous cesarean delivery; F32.A Depression, unspecified; E07.9 Disorder of thyroid, unspecified; J40 Bronchitis, not specified as acute or chronic; I10 Essential (primary) hypertension; Z79.899 Other long term (current) drug therapy; Z98.890 Other specified postprocedural states; Z79.82 Long term (current) use of aspirin; Z87.891 Personal history of nicotine dependence; Z88.8 Allergy status to other drugs, medicaments and biological substances; Z20.822 Contact with and (suspected) exposure to COVID-19
CPT/HCPCS: 36415; 74177; 80053; 85025; 87040; 87070; 87205; 87635; 96365; 96366; 96376; A9270; G0378; G0379; J2543; J7050; Q9967; J3490; U0002

== ENCOUNTER 2023-09-11 13:58 | Emergency (ER) | payer BC, SELFPAY ==
[2023-09-11] MEDS: Sodium Chloride 0.9% 1,000 ML IV ONE (14:37)
[2023-09-11] MEDS: Ketorolac 30 MG/ML SDV IVPUSH ONE (14:37)
[2023-09-11] MEDS: Acetaminophen 500 MG Tab PO ONE (14:38)
[2023-09-11 14:48] LABS: BASOPHILS ABSOLUTE AUTO 0.03 K/uL (0.00-0.20); BASOPHILS PERCENT AUTO 0.7 % (0.0-1.0); EOSINOPHILS ABSOLUTE AUTO 0.07 K/uL (0.00-0.45); EOSINOPHILS PERCENT AUTO 1.6 % (0.0-6.0); HEMATOCRIT 36.9 % (37.0-47.0); HEMOGLOBIN 11.9 g/dL (12.0-16.0); IMMATURE GRAN ABSOLUTE AUTO 0.02 K/uL (0.00-0.05); IMMATURE GRAN PERCENT AUTO 0.5 % (0.0-0.4); LYMPHOCYTES ABSOLUTE AUTO 0.46 K/uL (1.00-4.80); LYMPHOCYTES PERCENT AUTO 10.4 % (24.0-44.0); MEAN CORPUSCULAR HEMOGLOBIN 28.3 pg (28.0-32.0); MEAN CORPUSCULAR HGB CONC 32.2 g/dL (32.0-36.0); MEAN CORPUSCULAR VOLUME 87.6 fL (83.0-99.0); MEAN PLATELET VOLUME 9.7 fL (9.4-12.3); MONOCYTES ABSOLUTE AUTO 0.37 K/uL (0.00-0.80); MONOCYTES PERCENT AUTO 8.4 % (0.0-8.0); NEUTROPHILS ABSOLUTE AUTO 3.46 K/uL (1.80-7.70); NEUTROPHILS PERCENT AUTO 78.4 % (41.0-71.0); PLATELET COUNT,PLT 233 K/uL (150-400); RED BLOOD CELL COUNT 4.21 M/uL (4.10-5.30); WHITE BLOOD CELL COUNT,WBC 4.41 K/uL (3.9-11.3)
[2023-09-11 15:18] LABS: BASE EXCESS VENOUS -1.9 (-2.0-3.0); PH,VENOUS 7.39 (7.31-7.41)
[2023-09-11 15:19] LABS: D-DIMER QUANTITATIVE 0.56 mg/L FEU (0.00-0.50); INR 0.96 (0.86-1.11); PTT,PARTIAL THROMBOPLSTIN TIME 28.7 SEC (23.9-30.7)
[2023-09-11 15:20] LABS: A/G RATIO 0.9 (0.9-1.6); ALBUMIN 3.3 g/dL (3.4-5.0); BILIRUBIN TOTAL 0.3 mg/dL (0.2-1.0); CALCIUM 8.4 mg/dL (8.5-10.1); CARBON DIOXIDE,CO2 23.8 mmol/L (21.0-32.0); CREATININE 0.9 mg/dL (0.6-1.0); EST CRCL DRUG DOSING (CG) 92.05 mL/min; POTASSIUM,K 4.1 mmol/L (3.5-5.1); PROTEIN TOTAL,TP 7.1 g/dL (6.4-8.2); TSH ULTRASENSITIVE 1.62 uIU/mL (0.36-3.74)
[2023-09-11] MEDS: Iopamidol 755 Mg/ML 100 ML Bottle IVPUSH STA (16:03)
== END 2023-09-11 17:35 | disposition home or self-care (01) ==
LOC: MW.ED 13:58
DX: R05.9 Cough, unspecified (principal); E03.9 Hypothyroidism, unspecified; Z86.16 Personal history of COVID-19; Z90.49 Acquired absence of other specified parts of digestive tract; Z79.899 Other long term (current) drug therapy; Z88.8 Allergy status to other drugs, medicaments and biological substances
CPT/HCPCS: 36415; 71045; 71275; 80053; 82803; 83605; 84443; 84484; 84703; 85025; 85379; 85610; 85730; 87040; 96361; 96374; 99285; A9270; J1885; J7030; Q9967; 93010; 99284

== ENCOUNTER 2024-08-09 11:00 | Emergency (ER) | payer BC, MEDICAID ==
[2024-08-09] MEDS ORDERED: Sodium Chloride 0.9% 2.5 ML Syringe FLUSH PRN (12:07)
[2024-08-09] MEDS ORDERED: Sodium Chloride 0.9% 10 ML Syringe FLUSH PRN (12:07)
[2024-08-09 12:33] LABS: HEMATOCRIT 32.9 % (37.0-47.0); HEMOGLOBIN 10.4 g/dL (12.0-16.0); MEAN CORPUSCULAR HEMOGLOBIN 25.9 pg (28.0-32.0); MEAN CORPUSCULAR HGB CONC 31.6 g/dL (32.0-36.0); MEAN PLATELET VOLUME 9.5 fL (9.4-12.3); PLATELET COUNT,PLT 186 K/uL (150-400); RED BLOOD CELL COUNT 4.01 M/uL (4.10-5.30)
[2024-08-09] MEDS: Lactated Ringers 1,000 ML IV ONE (13:01)
[2024-08-09 13:03] LABS: BASOPHILS ABSOLUTE MAN 0.05 K/uL (0.00-0.20); BASOPHILS PERCENT MAN 1 % (0-1); LYMPHOCYTES ABSOLUTE MAN 0.96 K/uL (1.00-4.80); LYMPHOCYTES PERCENT MAN 20 % (24-44); MONOCYTES ABSOLUTE MAN 0.43 K/uL (0.00-0.80); MONOCYTES PERCENT MAN 9 % (0-8); SEG NEUTROPHILS ABSOLUTE MAN 3.36 K/uL (1.80-7.70); SEG NEUTROPHILS PERCENT MAN 70 % (41-71)
[2024-08-09] MEDS: Acetaminophen 325 MG Tab PO ONE (13:07)
[2024-08-09 13:09] LABS: A/G RATIO 0.8 (0.9-1.6); ALBUMIN 3.1 g/dL (3.4-5.0); BILIRUBIN TOTAL 0.6 mg/dL (0.2-1.0); CALCIUM 8.6 mg/dL (8.5-10.1); CARBON DIOXIDE,CO2 22.3 mmol/L (21.0-32.0); CREATININE 0.9 mg/dL (0.6-1.0); EST CRCL DRUG DOSING (CG) 91.18 mL/min; POTASSIUM,K 3.3 mmol/L (3.5-5.1); TSH ULTRASENSITIVE 1.15 uIU/mL (0.36-3.74)
== END 2024-08-09 14:45 | disposition home or self-care (01) ==
LOC: MW.ED 11:00
DX: B34.9 Viral infection, unspecified (principal); R00.2 Palpitations; I10 Essential (primary) hypertension; E03.9 Hypothyroidism, unspecified; E66.9 Obesity, unspecified; Z79.899 Other long term (current) drug therapy; Z88.8 Allergy status to other drugs, medicaments and biological substances; Z75.8 Other problems related to medical facilities and other health care; Z68.43 Body mass index [BMI] 50.0-59.9, adult
CPT/HCPCS: 36415; 71046; 80053; 83880; 84443; 84484; 85025; 87428; 93005; 96360; 99285; A9270; J7120; 93010; 99283